=== PATIENT | male | born 1945 | race Caucasian/White ===

== ENCOUNTER 2017-10-11 14:05 | Emergency (ER) | payer MEDICARE ==
--- NOTE | 2017-10-11 15:30 | UC ---
Respiratory Complaint HPI - HPI Summary HPI Summary: Pt c/o generalized malaise, DIETRICH, pain in Upper chest/neck with deep breath and states he "just doesn't feel right". Pt got a flu vaccine today. Reports that in September 2017 he had multiple episode of hematuria but not since last episode in September. - History of Current Complaint Chief Complaint: UCGeneralIllness Stated Complaint: DIZZY/DIETRICH/NAUSEA Time Seen by Provider: 10/11/17 15:05 Hx Obtained From: Patient Onset/Duration: Gradual Onset, Lasting Days, Still Present, Worse Since - onset Timing: Constant Severity Initially: Mild Severity Currently: Moderate Aggravating Factors: Deep Breaths Associated Signs And Symptoms: Positive: Dyspnea - Risk Factors Cardiac Risk Factors: Diabetes Pseudomonas Risk Factors: Negative Tuberculosis Risk Factors: Diabetes - Allergies/Home Medications Allergies/Adverse Reactions: Allergies Allergy/AdvReac Type Severity Reaction Status Date / Time Penicillins Allergy Intermediate Hives Verified 10/11/17 14:37 Home Medications: Home Medications Empagliflozin [Jardiance] 10 mg PO DAILY 10/11/17 [History Confirmed 10/11/17] Rosuvastatin Calcium [Crestor] 5 mg PO DAILY 10/11/17 [History Confirmed ] Sitagliptin Phosphate [Januvia] 100 mg PO DAILY 10/11/17 [History Confirmed 06/20] PMH/Surg Hx/FS Hx/Imm Hx Previously Healthy: Yes Endocrine History: Diabetes - Surgical History Surgical History: Yes Surgery Procedure, Year, and Place: COLECTOMY FOR DIVERTICULITIS,. CYSTOSCOPY FOR "BLADDER STONES" - Family History Known Family History: Positive: Cardiac Disease - Social History Occupation: Retired Lives: With Family Alcohol Use: Occasionally Substance Use Type: None Smoking Status (MU): Former Smoker Have You Smoked in the Last Year: No When Did the Patient Quit Smoking/Using Tobacco: 1960 - Immunization History Most Recent Tetanus Shot: within past 1 1/2 years Review of Systems Constitutional: Chills, Fatigue Skin: Negative Eyes: Negative ENT: Negative Respiratory: Other - pain with inspiratory breath Cardiovascular: Negative Gastrointestinal: Negative Genitourinary: Hematuria - resolved since last episode in September 2017 Motor: Negative Neurovascular: Negative Musculoskeletal: Negative Neurological: Negative Psychological: Negative Is Patient Immunocompromised?: No All Other Systems Reviewed And Are Negative: Yes Physical Exam Triage Information Reviewed: Yes Appearance: Ill-Appearing Vital Signs: Initial Vital Signs Temp 98.4 F 10/11/17 14:31 Pulse 108 10/11/17 14:31 Resp 16 10/11/17 14:31 BP 97/57 10/11/17 14:31 Pulse Ox 96 10/11/17 14:31 Vital Signs Reviewed: Yes Eye Exam: Normal ENT Exam: Normal Dental Exam: Normal Neck exam: Normal Respiratory Exam: Normal Respiratory: Positive: Normal breath sounds, No respiratory distress Cardiovascular: Positive: Tachycardia Musculoskeletal Exam: Normal Neurological Exam: Normal Psychological Exam: Normal Skin Exam: Normal UC Diagnostic Evaluation - Laboratory O2 Sat by Pulse Oximetry: 96 Respiratory Course/Dx - Course Course Of Treatment: I discussed with the pt the need to follow up with his PCP or seek care at the closest ER if symptoms do not improve or worsen. Pt verbalized understanding and agreed to plan of care. Pt also stated that his DIETRICH improved by time of discharge. - Differential Dx/Diagnosis Differential Diagnosis/HQI/PQRI: Bronchitis, Pulmonary Embolism, Other - viral syndrome, fatigue Provider Diagnoses: viral syndrome. fatigue. DIETRICH. weakness Discharge - Discharge Plan Condition: Stable Disposition: HOME Patient Education Materials: Acute Headache (ED), Fatigue (ED), Tachycardia ( ED) Referrals: Luigi PEREZ,Marissa Lantigua [Primary Care Provider] - If Needed Additional Instructions: If your symptoms do not improve please seek care immediately at the closest Emergency Room. Please follow up with your PCP or return to clinic as needed.
[2017-10-11 16:03] VITALS: BP 122/69
== END 2017-10-11 16:16 | disposition home or self-care (01) ==
LOC: UCCORT 14:05
DX: B34.9 Viral infection, unspecified (principal); R53.83 Other fatigue; R51 Headache; R53.1 Weakness; Z87.891 Personal history of nicotine dependence
CPT/HCPCS: 81003; 87502; 99211; G0463

== ENCOUNTER 2018-07-16 13:18 | Emergency (ER) | payer MEDICARE ==
[2018-07-16 14:02] VITALS: BP 130/61
--- NOTE | 2018-07-16 14:56 | UC ---
Respiratory Complaint HPI - HPI Summary HPI Summary: 10 DAYS OF COUGH, NASAL CONGESTION, DRAINAGE AND SCRATCHY THROAT THAT HAVE NOW MOSTLY RESOLVED. PATIENT PRESENTS WITH PERSISTENT LEFT SIDED SINUS PAIN AND PRESSURE. NO FEVER, NAUSEA/VOMITING, VISUAL DISTURBANCE. - History of Current Complaint Chief Complaint: UCRespiratory Stated Complaint: SINUS COMPLAINT Time Seen by Provider: 07/16/18 14:42 Hx Obtained From: Patient Onset/Duration: Gradual Onset, Lasting Days, Still Present - BUT MOSTLY RESOLVED Timing: Constant Severity Initially: Moderate Severity Currently: Mild Pain Intensity: 4 Pain Scale Used: 0-10 Numeric Character: Cough: Nonproductive Aggravating Factors: Nothing Alleviating Factors: Nothing Associated Signs And Symptoms: Positive: URI, Sinus Discomfort. Negative: Dyspnea, Fever, Chills, Wheezing - Allergies/Home Medications Allergies/Adverse Reactions: Allergies Allergy/AdvReac Type Severity Reaction Status Date / Time Penicillins Allergy Itchy Rash Verified 07/16/18 14:02 Home Medications: Home Medications Aspirin EC TAB* [Ecotrin EC Low Dose 81 MG*] 81 mg PO DAILY 07/16/18 [History Confirmed 07/16/18] Cholecalciferol TAB* [Vitamin D TAB*] 1,000 unit PO DAILY 07/16/18 [History Confirmed 07/16/18] PMH/Surg Hx/FS Hx/Imm Hx Endocrine History: Diabetes, Dyslipidemia - Surgical History Surgical History: Yes Surgery Procedure, Year, and Place: COLECTOMY FOR DIVERTICULITIS,. CYSTOSCOPY FOR "BLADDER STONES" - Family History Known Family History: Positive: Cardiac Disease Negative: Hypertension - Social History Alcohol Use: Occasionally Substance Use Type: None Smoking Status (MU): Former Smoker Have You Smoked in the Last Year: No When Did the Patient Quit Smoking/Using Tobacco: 1960 - Immunization History Most Recent Tetanus Shot: within past 1 1/2 years Review of Systems Constitutional: Negative ENT: Nasal Discharge, Sinus Pain/Tenderness Respiratory: Cough Cardiovascular: Negative Gastrointestinal: Negative Neurological: Headache All Other Systems Reviewed And Are Negative: Yes Physical Exam Triage Information Reviewed: Yes Appearance: Well-Appearing, No Pain Distress, Well-Nourished Vital Signs: Initial Vital Signs Temp 97.9 F 07/16/18 13:59 Pulse 82 07/16/18 13:59 Resp 16 07/16/18 13:59 BP 130/61 07/16/18 13:59 Pulse Ox 100 07/16/18 13:59 Vital Signs Reviewed: Yes Eyes: Positive: Conjunctiva Clear ENT: Positive: Hearing grossly normal, Pharynx normal, TMs normal Neck: Positive: Supple, Nontender, No Lymphadenopathy Respiratory Exam: Normal Cardiovascular Exam: Normal Abdomen Description: Positive: Soft Musculoskeletal: Positive: No Edema Neurological: Positive: Alert Psychological: Positive: Age Appropriate Behavior Skin: Negative: rashes UC Diagnostic Evaluation - Laboratory O2 Sat by Pulse Oximetry: 100 Respiratory Course/Dx - Differential Dx/Diagnosis Provider Diagnoses: ACUTE SINUSITIS - LIKELY VIRAL Discharge - Sign-Out/Discharge Documenting (check all that apply): Patient Departure All imaging exams completed and their final reports reviewed: No Studies - Discharge Plan Condition: Stable Disposition: HOME Patient Education Materials: Sinusitis (ED) Referrals: Luigi PEREZ,Marissa Lantigua [Primary Care Provider] - If Needed Additional Instructions: YOUR SYMPTOMS ARE LIKELY VIRALLY MEDIATED AND SHOULD CONTINUE TO IMPROVE ON THEIR OWN WITH TIME. NO INDICATION FOR ANTIBIOTICS AT PRESENT. REST, HYDRATE, OTC MEDS NEEDED. SEEK FOLLOW-UP IF YOU ARE NOT IMPROVING OVER THE NEXT 1-2 WEEKS. CALL ME IN [place] THIS TUESDAY OR TUESDAY FROM 7AM - 2PM IF YOU HAVE ANY QUESTIONS OR CONCERNS ABOUT THE PROGRESSION OF YOUR ILLNESS. - Billing Disposition and Condition Condition: STABLE Disposition: Home
== END 2018-07-16 15:05 | disposition home or self-care (01) ==
LOC: UCCORT 13:18
DX: J01.90 Acute sinusitis, unspecified (principal); Z88.0 Allergy status to penicillin; E11.9 Type 2 diabetes mellitus without complications; Z87.891 Personal history of nicotine dependence
CPT/HCPCS: 99211; G0463